=== PATIENT | male | born 1945 | race African-American/Black ===

== ENCOUNTER 2018-05-05 18:02 | Inpatient (IN) ==
[2018-05-05] MEDS ORDERED: ACETAMINOPHEN 325 MG TABLET PO PRN (20:18)
[2018-05-05] MEDS ORDERED: SODIUM CHLORIDE 0.9% 1,000 ML IV PRN (20:23)
[2018-05-05] MEDS ORDERED: SODIUM CHLORIDE 0.9% 1,000 ML IV SCH (20:30)
[2018-05-05 21:13] LABS: Hematocrit 17.9 VOL% (42.0-52.0); Hemoglobin 5.3 GM/DL (14.0-18.0); INR 1.1; PT Patient Result 11.7 SECS
[2018-05-05 21:26] LABS: Thyroid Stimulating Hormone 2.42 uIU/ml (0.358-3.74)
[2018-05-06] MEDS: POTASSIUM CHLORIDE INJ 40 MEQ in SODIUM CHLORIDE 0.9% 1,000 ML IV SCH ×4 (01:01→18:44)
[2018-05-06] MEDS: PANTOPRAZOLE 40 MG VIAL IV SCH ×3 (04:43→21:20)
[2018-05-06] MEDS: cefTRIAXone 1,000 MG in SYRINGE 1 EACH IV SCH ×2 (04:44→21:16)
[2018-05-06 04:49] LABS: Apearance,Urine Slightly Hazy (Clear); Bacteria,Urine Occasional /HPF (Few); Bilirubin,Urine Negative (Negative); Blood, Urine Small mg/dL (Negative); Glucose,Urine (UA) Negative (Negative); Hyaline Casts,Urine 1 /LPF (0-3); Ketones,Urine Negative (Negative); Mucus,Urine Occasional /LPF (Occasional); Nitrite,Urine Negative (Negative); Protein,Urine 30 MG/DL; RBC,Urine 15 /HPF (0-4); Squamous Epithelial Cell,Urine Occasional /HPF (0-10); Urine Color Yellow (Yellow); Urine Specific Gravity 1.013 (1.001-1.035); WBC,Urine 97 /HPF (0-6)
[2018-05-06 07:44] LABS: Basophils % 0.2 % (0.0-0.8); Eosinophils # 0.2 10*3/uL (0.0-0.87); Eosinophils % 3.6 % (0.00-10.9); Hematocrit 25.1 VOL% (42.0-52.0); Hemoglobin 7.9 GM/DL (14.0-18.0); Immature Granulocytes % 0.4 %; Immature Granulocytes Absolute 0.02 #; Lymphocytes % 17.5 % (21.2-54.2); Mean Corpuscular HGB Conc 31.6 GM/DL (32-36); Mean Corpuscular Hemoglobin 26 PG (27-34); Mean Corpuscular Volume 81.2 FL (87-102); Mean Platelet Volume 10.1 FL (9.6-12.0); Monocytes # 0.4 10*3/uL (0.11-0.8); Monocytes % 6.8 % (1.7-12.7); Neutrophils % 71.5 % (38.7-73.9); Platelet Count 359 T/CUMM (130-400); Red Blood Count 3.08 MC/CUMM (3.8-5.5); Red Cell Distribution Width 15.8 % (9.3-17.3); White Blood Count 5.6 T/CUMM (4-12)
[2018-05-06 07:45] LABS: Hematocrit 25.3 VOL% (42.0-52.0); Hematocrit 25.5 VOL% (42.0-52.0); Hemoglobin 7.9 GM/DL (14.0-18.0)
[2018-05-06 08:13] LABS: Alanine Aminotransferase < 9 U/L (16-61); Albumin 2.1 G/DL (3.4-5.0); Alkaline Phosphatase 64 U/L (45-117); Aspartate Amino Transferase 9 U/L (0-37); Blood Urea Nitrogen 8 MG/DL (7-18); Calcium 7.9 MG/DL (8.5-10.1); Glucose 87 MG/DL (74-106); Osmolality,Calculated 273.5 MOS/KG (273-304); Potassium 3.6 MMOL/L (3.5-5.1); Sodium 139 MMOL/L (136-145); Total Protein 6.9 G/DL (6.4-8.3)
[2018-05-06 09:08] LABS: % Iron Saturation 4.2 % (18-50); Ferritin 28.5 ng/ml (26-388)
[2018-05-06 10:43] LABS: Folate 5.6 NG/ML (5.4-24.0)
[2018-05-06] MEDS: amLODIPine 5 MG TABLET PO SCH (11:40)
[2018-05-06 14:47] LABS: Hematocrit 29.1 VOL% (42.0-52.0); Hemoglobin 9.4 GM/DL (14.0-18.0)
[2018-05-06] MEDS: FOLIC ACID 1 MG TABLET PO SCH ×2 (15:50→21:16)
[2018-05-06] MEDS: CYANOCOBALAMIN 1000 MCG/1 ML VIAL IM SCH (15:50)
[2018-05-07 05:56] LABS: Basophils % 0.4 % (0.0-0.8); Eosinophils # 0.2 10*3/uL (0.0-0.87); Eosinophils % 4.2 % (0.00-10.9); Hematocrit 23.3 VOL% (42.0-52.0); Hemoglobin 7.5 GM/DL (14.0-18.0); Immature Granulocytes % 0.4 %; Immature Granulocytes Absolute 0.02 #; Lymphocytes # 1.2 10*3/uL (1.4-4.0); Lymphocytes % 21.2 % (21.2-54.2); Mean Corpuscular HGB Conc 32.2 GM/DL (32-36); Mean Corpuscular Hemoglobin 26 PG (27-34); Mean Corpuscular Volume 79.3 FL (87-102); Mean Platelet Volume 10.3 FL (9.6-12.0); Monocytes # 0.3 10*3/uL (0.11-0.8); Monocytes % 6.2 % (1.7-12.7); Neutrophils # 3.7 10*3/uL (1.4-7.4); Neutrophils % 67.6 % (38.7-73.9); Platelet Count 365 T/CUMM (130-400); Red Blood Count 2.94 MC/CUMM (3.8-5.5); Red Cell Distribution Width 15.9 % (9.3-17.3); White Blood Count 5.5 T/CUMM (4-12)
[2018-05-07 06:27] LABS: Calcium 7.8 MG/DL (8.5-10.1); Osmolality,Calculated 265.1 MOS/KG (273-304); Potassium 4.1 MMOL/L (3.5-5.1)
[2018-05-07] MEDS ORDERED: MAGNESIUM SULF RIDER 2 GM in PREMIX 1 EACH IV ONE (06:55)
[2018-05-07] MEDS: PANTOPRAZOLE 40 MG VIAL IV SCH (10:58)
[2018-05-07] MEDS: amLODIPine 5 MG TABLET PO SCH (10:58)
[2018-05-07] MEDS: CYANOCOBALAMIN 1000 MCG/1 ML VIAL IM SCH (10:58)
[2018-05-07] MEDS: FOLIC ACID 1 MG TABLET PO SCH ×2 (10:58→22:16)
[2018-05-07] MEDS ORDERED: FUROSEMIDE 40 MG/4 ML VIAL IV ONE (14:57)
[2018-05-08 01:00] LABS: Hematocrit 34.9 VOL% (42.0-52.0); Hemoglobin 11.7 GM/DL (14.0-18.0)
[2018-05-08] MEDS: PANTOPRAZOLE 40 MG VIAL IV SCH ×3 (03:36→22:47)
[2018-05-08] MEDS: cefTRIAXone 1,000 MG in SYRINGE 1 EACH IV SCH (03:38)
[2018-05-08] MEDS: POTASSIUM CHLORIDE INJ 40 MEQ in SODIUM CHLORIDE 0.9% 1,000 ML IV SCH (08:01)
[2018-05-08] MEDS: CYANOCOBALAMIN 1000 MCG/1 ML VIAL IM SCH (09:37)
[2018-05-08] MEDS: amLODIPine 5 MG TABLET PO SCH (09:39)
[2018-05-08] MEDS: FOLIC ACID 1 MG TABLET PO SCH ×2 (09:39→22:48)
[2018-05-08] MEDS ORDERED: BISACODYL 5 MG TABLET PO ONE (12:00)
[2018-05-08] MEDS ORDERED: POLYETHYLENE GLYCOL 3350/ELECTROLYTES 4,000 ML BOTTLE PO ONE (18:00)
[2018-05-09 05:18] LABS: Hematocrit 32.1 VOL% (42.0-52.0); Hemoglobin 10.7 GM/DL (14.0-18.0)
[2018-05-09 05:19] LABS: Basophils % 0.3 % (0.0-0.8); Eosinophils # 0.3 10*3/uL (0.0-0.87); Eosinophils % 4.8 % (0.00-10.9); Hematocrit 31.8 VOL% (42.0-52.0); Hemoglobin 10.2 GM/DL (14.0-18.0); Immature Granulocytes % 0.3 %; Immature Granulocytes Absolute 0.02 #; Lymphocytes # 1.2 10*3/uL (1.4-4.0); Lymphocytes % 20.8 % (21.2-54.2); Mean Corpuscular HGB Conc 32.1 GM/DL (32-36); Mean Corpuscular Hemoglobin 27 PG (27-34); Mean Corpuscular Volume 82.8 FL (87-102); Monocytes # 0.3 10*3/uL (0.11-0.8); Monocytes % 5.2 % (1.7-12.7); Neutrophils % 68.6 % (38.7-73.9); Platelet Count 381 T/CUMM (130-400); Red Blood Count 3.84 MC/CUMM (3.8-5.5); Red Cell Distribution Width 16.7 % (9.3-17.3); White Blood Count 5.8 T/CUMM (4-12)
[2018-05-09 05:39] LABS: Calcium 8.1 MG/DL (8.5-10.1); Potassium 3.2 MMOL/L (3.5-5.1)
[2018-05-09] MEDS: PANTOPRAZOLE 40 MG VIAL IV SCH ×2 (09:12→20:46)
[2018-05-09] MEDS: POTASSIUM CHLORIDE RIDER 10 MEQ in PREMIX 1 EACH IV PRN ×4 (09:13→20:47)
[2018-05-09] MEDS ORDERED: PROPOFOL 200 MG/20 ML VIAL IV ONE (11:28)
[2018-05-09] MEDS ORDERED: LIDOCAINE 2% 5 ML VIAL ONE (11:28)
[2018-05-09] MEDS: amLODIPine 5 MG TABLET PO SCH (15:04)
[2018-05-09] MEDS: FOLIC ACID 1 MG TABLET PO SCH ×2 (15:04→20:46)
[2018-05-10] MEDS: amLODIPine 10 MG TABLET PO SCH (09:06)
[2018-05-10] MEDS: FOLIC ACID 1 MG TABLET PO SCH ×2 (09:06→21:01)
[2018-05-10] MEDS: PANTOPRAZOLE 40 MG VIAL IV SCH ×2 (09:06→21:01)
[2018-05-10 09:33] LABS: Basophils % 0.2 % (0.0-0.8); Eosinophils # 0.2 10*3/uL (0.0-0.87); Eosinophils % 4.4 % (0.00-10.9); Hematocrit 35.3 VOL% (42.0-52.0); Hemoglobin 11.4 GM/DL (14.0-18.0); Immature Granulocytes % 0.4 %; Immature Granulocytes Absolute 0.02 #; Lymphocytes % 17.9 % (21.2-54.2); Mean Corpuscular HGB Conc 32.3 GM/DL (32-36); Mean Corpuscular Hemoglobin 27 PG (27-34); Mean Corpuscular Volume 82.7 FL (87-102); Mean Platelet Volume 9.8 FL (9.6-12.0); Monocytes # 0.2 10*3/uL (0.11-0.8); Monocytes % 4.1 % (1.7-12.7); Platelet Count 407 T/CUMM (130-400); Red Blood Count 4.27 MC/CUMM (3.8-5.5); White Blood Count 5.4 T/CUMM (4-12)
[2018-05-10 10:01] LABS: Calcium 8.9 MG/DL (8.5-10.1); Potassium 3.4 MMOL/L (3.5-5.1)
[2018-05-10] MEDS ORDERED: TUBERCULIN SKIN TEST 0.1 ML SYRINGE INTRADERM ONE (13:24)
[2018-05-10] MEDS ORDERED: POLYETHYLENE GLYCOL POWDER 255 GM BOTTLE PO ONE (16:52)
[2018-05-11 05:46] LABS: Basophils % 0.4 % (0.0-0.8); Eosinophils # 0.3 10*3/uL (0.0-0.87); Eosinophils % 4.7 % (0.00-10.9); Hematocrit 32.1 VOL% (42.0-52.0); Hemoglobin 10.2 GM/DL (14.0-18.0); Immature Granulocytes % 0.2 %; Immature Granulocytes Absolute 0.01 #; Lymphocytes # 1.1 10*3/uL (1.4-4.0); Lymphocytes % 19.5 % (21.2-54.2); Mean Corpuscular HGB Conc 31.8 GM/DL (32-36); Mean Corpuscular Hemoglobin 27 PG (27-34); Mean Corpuscular Volume 84.7 FL (87-102); Mean Platelet Volume 10.4 FL (9.6-12.0); Monocytes # 0.3 10*3/uL (0.11-0.8); Monocytes % 4.8 % (1.7-12.7); Neutrophils # 3.9 10*3/uL (1.4-7.4); Neutrophils % 70.4 % (38.7-73.9); Platelet Count 381 T/CUMM (130-400); Red Blood Count 3.79 MC/CUMM (3.8-5.5); Red Cell Distribution Width 17.4 % (9.3-17.3); White Blood Count 5.6 T/CUMM (4-12)
[2018-05-11 06:04] LABS: Calcium 8.9 MG/DL (8.5-10.1); Osmolality,Calculated 276.4 MOS/KG (273-304); Potassium 3.8 MMOL/L (3.5-5.1)
[2018-05-11] MEDS: PANTOPRAZOLE 40 MG VIAL IV SCH ×2 (08:47→20:52)
[2018-05-11] MEDS: amLODIPine 10 MG TABLET PO SCH (10:05)
[2018-05-11] MEDS: FOLIC ACID 1 MG TABLET PO SCH ×2 (10:05→20:52)
[2018-05-11] MEDS ORDERED: cefOXitin 2,000 MG in SYRINGE 1 EACH IV ONE (12:00)
[2018-05-11] MEDS ORDERED: TISSUE ADHESIVE 1 EACH APPLICATOR TOP ONE (12:20)
[2018-05-11] MEDS ORDERED: BUPIVACAINE MPF 0.25% 30 ML VIAL ONE (15:35)
[2018-05-11] MEDS ORDERED: MORPHINE 10 MG/1 ML VIAL IV PRN (16:03)
[2018-05-11] MEDS ORDERED: diphenhydrAMINE 50 MG/1 ML VIAL IV PRN (16:03)
[2018-05-11] MEDS ORDERED: PROMETHAZINE INJ 25 MG in SODIUM CHLORIDE 0.9% 50 ML IV PRN (16:03)
[2018-05-11] MEDS ORDERED: ONDANSETRON 4 MG/2 ML VIAL IV PRN (16:03)
[2018-05-11] MEDS ORDERED: MEPERIDINE 25 MG/1 ML VIAL IV PRN (16:03)
[2018-05-11] MEDS ORDERED: fentaNYL 100 MCG/2 ML VIAL ONE (16:25)
[2018-05-11] MEDS ORDERED: MIDAZOLAM 2 MG/2 ML VIAL ONE (16:25)
[2018-05-11] MEDS ORDERED: PROPOFOL 200 MG/20 ML VIAL IV ONE (16:25)
[2018-05-11] MEDS ORDERED: SEVOFLURANE 1 UNIT/15 MINUTE INH ONE (16:25)
[2018-05-11] MEDS ORDERED: DESFLURANE 1 UNIT/15 MINUTE INH ONE (16:25)
[2018-05-11] MEDS ORDERED: ONDANSETRON 4 MG/2 ML VIAL ONE (16:25)
[2018-05-11] MEDS ORDERED: ROCURONIUM 100 MG/10 ML VIAL IV ONE (16:26)
[2018-05-11] MEDS ORDERED: LACTATED RINGERS 1,000 ML IV ONE (16:26)
[2018-05-11] MEDS ORDERED: NEOSTIGMINE 10 MG/10 ML VIAL ONE (16:26)
[2018-05-11] MEDS ORDERED: SUCCINYLCHOLINE 200 MG/10 ML VIAL ONE (16:26)
[2018-05-11] MEDS ORDERED: GLYCOPYRROLATE 0.4 MG/2 ML VIAL ONE (16:26)
[2018-05-11] MEDS ORDERED: LABETALOL 100 MG/20 ML VIAL IV ONE (16:26)
[2018-05-11] MEDS: LACTATED RINGERS 1,000 ML IV SCH (17:42)
[2018-05-11] MEDS: ENOXAPARIN 40 MG/0.4 ML SYRINGE SUBCUT SCH (17:55)
[2018-05-11] MEDS: KETOROLAC 30 MG/1 ML VIAL IV SCH ×2 (17:55→23:12)
[2018-05-11 18:00] LABS: Basophils % 0.1 % (0.0-0.8); Eosinophils # 0.1 10*3/uL (0.0-0.87); Eosinophils % 0.8 % (0.00-10.9); Hematocrit 33.2 VOL% (42.0-52.0); Hemoglobin 10.4 GM/DL (14.0-18.0); Immature Granulocytes % 0.3 %; Immature Granulocytes Absolute 0.02 #; Lymphocytes # 0.9 10*3/uL (1.4-4.0); Lymphocytes % 11.5 % (21.2-54.2); Mean Corpuscular HGB Conc 31.3 GM/DL (32-36); Mean Corpuscular Hemoglobin 27 PG (27-34); Mean Corpuscular Volume 85.6 FL (87-102); Mean Platelet Volume 9.8 FL (9.6-12.0); Monocytes # 0.2 10*3/uL (0.11-0.8); Monocytes % 2.7 % (1.7-12.7); Neutrophils # 6.3 10*3/uL (1.4-7.4); Neutrophils % 84.6 % (38.7-73.9); Platelet Count 347 T/CUMM (130-400); Red Blood Count 3.88 MC/CUMM (3.8-5.5); Red Cell Distribution Width 17.3 % (9.3-17.3); White Blood Count 7.5 T/CUMM (4-12)
[2018-05-11 18:07] LABS: Calcium 8.4 MG/DL (8.5-10.1); Osmolality,Calculated 282.3 MOS/KG (273-304); Potassium 3.5 MMOL/L (3.5-5.1)
[2018-05-12] MEDS: LACTATED RINGERS 1,000 ML IV SCH ×2 (02:18→10:55)
[2018-05-12] MEDS: KETOROLAC 30 MG/1 ML VIAL IV SCH ×3 (05:23→18:51)
[2018-05-12 06:25] LABS: Basophils % 0.2 % (0.0-0.8); Eosinophils % 0.5 % (0.00-10.9); Hemoglobin 9.4 GM/DL (14.0-18.0); Immature Granulocytes % 0.2 %; Immature Granulocytes Absolute 0.02 #; Lymphocytes # 0.6 10*3/uL (1.4-4.0); Lymphocytes % 6.9 % (21.2-54.2); Mean Corpuscular HGB Conc 32.4 GM/DL (32-36); Mean Corpuscular Hemoglobin 27 PG (27-34); Mean Corpuscular Volume 83.1 FL (87-102); Mean Platelet Volume 10.1 FL (9.6-12.0); Monocytes # 0.3 10*3/uL (0.11-0.8); Monocytes % 3.2 % (1.7-12.7); Neutrophils # 7.4 10*3/uL (1.4-7.4); Platelet Count 312 T/CUMM (130-400); Red Blood Count 3.49 MC/CUMM (3.8-5.5); Red Cell Distribution Width 17.6 % (9.3-17.3); White Blood Count 8.3 T/CUMM (4-12)
[2018-05-12 06:54] LABS: Calcium 7.9 MG/DL (8.5-10.1); Osmolality,Calculated 279.3 MOS/KG (273-304); Potassium 3.9 MMOL/L (3.5-5.1)
[2018-05-12 07:16] LABS: Band Neutrophils 6 % (0-10); Hypochromasia 1+; Lymphocytes 7 % (20-55); Ovalocytes Slight; Platelet Estimate Adequate; Segmented Neutrophils 85 % (50-85); Total Cells Counted 100
[2018-05-12] MEDS: amLODIPine 10 MG TABLET PO SCH (09:31)
[2018-05-12] MEDS: FOLIC ACID 1 MG TABLET PO SCH ×2 (09:32→21:20)
[2018-05-12] MEDS: PANTOPRAZOLE 40 MG VIAL IV SCH ×2 (10:04→21:21)
[2018-05-12] MEDS ORDERED: MAGNESIUM SULF RIDER 2 GM in PREMIX 1 EACH IV ONE (10:28)
[2018-05-12] MEDS: DEXT 5% NACL 0.45% KCL 40 MEQ 40 MEQ/1,000 ML BAG IV SCH ×2 (10:53→23:23)
[2018-05-12] MEDS: ENOXAPARIN 40 MG/0.4 ML SYRINGE SUBCUT SCH (18:51)
[2018-05-13] MEDS: KETOROLAC 30 MG/1 ML VIAL IV SCH ×4 (00:15→17:00)
[2018-05-13 06:15] LABS: Basophils % 0.2 % (0.0-0.8); Eosinophils # 0.2 10*3/uL (0.0-0.87); Eosinophils % 2.4 % (0.00-10.9); Hematocrit 28.4 VOL% (42.0-52.0); Hemoglobin 9.1 GM/DL (14.0-18.0); Immature Granulocytes % 0.5 %; Immature Granulocytes Absolute 0.05 #; Lymphocytes # 0.7 10*3/uL (1.4-4.0); Mean Corpuscular Hemoglobin 27 PG (27-34); Mean Corpuscular Volume 84.5 FL (87-102); Mean Platelet Volume 9.9 FL (9.6-12.0); Monocytes # 0.3 10*3/uL (0.11-0.8); Monocytes % 3.4 % (1.7-12.7); Neutrophils # 8.3 10*3/uL (1.4-7.4); Neutrophils % 86.5 % (38.7-73.9); Platelet Count 277 T/CUMM (130-400); Red Blood Count 3.36 MC/CUMM (3.8-5.5); Red Cell Distribution Width 18.2 % (9.3-17.3); White Blood Count 9.6 T/CUMM (4-12)
[2018-05-13 06:41] LABS: Calcium 8.1 MG/DL (8.5-10.1); Osmolality,Calculated 279.4 MOS/KG (273-304); Potassium 4.1 MMOL/L (3.5-5.1)
[2018-05-13] MEDS: amLODIPine 10 MG TABLET PO SCH (08:07)
[2018-05-13] MEDS: FOLIC ACID 1 MG TABLET PO SCH ×2 (08:07→20:46)
[2018-05-13] MEDS: PANTOPRAZOLE 40 MG VIAL IV SCH ×2 (08:07→20:44)
[2018-05-13] MEDS: DEXT 5% NACL 0.45% KCL 40 MEQ 40 MEQ/1,000 ML BAG IV SCH ×2 (13:19→23:46)
[2018-05-13] MEDS: ENOXAPARIN 40 MG/0.4 ML SYRINGE SUBCUT SCH (17:00)
[2018-05-14] MEDS: KETOROLAC 30 MG/1 ML VIAL IV SCH ×5 (00:14→23:27)
[2018-05-14] MEDS: ONDANSETRON 4 MG/2 ML VIAL IV PRN (00:17)
[2018-05-14 06:08] LABS: Basophils % 0.3 % (0.0-0.8); Eosinophils # 0.3 10*3/uL (0.0-0.87); Hematocrit 31.1 VOL% (42.0-52.0); Hemoglobin 10.1 GM/DL (14.0-18.0); Immature Granulocytes % 0.8 %; Immature Granulocytes Absolute 0.09 #; Lymphocytes # 0.8 10*3/uL (1.4-4.0); Lymphocytes % 7.1 % (21.2-54.2); Mean Corpuscular HGB Conc 32.5 GM/DL (32-36); Mean Corpuscular Hemoglobin 27 PG (27-34); Mean Corpuscular Volume 82.1 FL (87-102); Mean Platelet Volume 10.1 FL (9.6-12.0); Monocytes # 0.3 10*3/uL (0.11-0.8); Monocytes % 2.9 % (1.7-12.7); Neutrophils # 9.2 10*3/uL (1.4-7.4); Neutrophils % 85.9 % (38.7-73.9); Platelet Count 309 T/CUMM (130-400); Red Blood Count 3.79 MC/CUMM (3.8-5.5); Red Cell Distribution Width 18.7 % (9.3-17.3); White Blood Count 10.8 T/CUMM (4-12)
[2018-05-14 06:31] LABS: Calcium 8.9 MG/DL (8.5-10.1); Osmolality,Calculated 276.5 MOS/KG (273-304)
[2018-05-14] MEDS: PANTOPRAZOLE 40 MG VIAL IV SCH ×2 (08:13→22:20)
[2018-05-14] MEDS: FOLIC ACID 1 MG TABLET PO SCH ×2 (09:31→22:20)
[2018-05-14] MEDS: amLODIPine 10 MG TABLET PO SCH (09:31)
[2018-05-14] MEDS: DEXT 5% NACL 0.45% KCL 40 MEQ 40 MEQ/1,000 ML BAG IV SCH ×3 (14:39→23:26)
[2018-05-14] MEDS: ENOXAPARIN 40 MG/0.4 ML SYRINGE SUBCUT SCH (17:30)
[2018-05-15] MEDS: KETOROLAC 30 MG/1 ML VIAL IV SCH ×3 (05:44→17:44)
[2018-05-15] MEDS: PANTOPRAZOLE 40 MG VIAL IV SCH ×2 (09:33→21:54)
[2018-05-15] MEDS: amLODIPine 10 MG TABLET PO SCH (09:36)
[2018-05-15] MEDS: FOLIC ACID 1 MG TABLET PO SCH ×2 (09:36→21:53)
[2018-05-15] MEDS: DEXT 5% NACL 0.45% KCL 40 MEQ 40 MEQ/1,000 ML BAG IV SCH ×2 (09:37→17:45)
[2018-05-15] MEDS: ENOXAPARIN 40 MG/0.4 ML SYRINGE SUBCUT SCH (17:44)
[2018-05-16 02:16] LABS: Calcium 8.2 MG/DL (8.5-10.1); Osmolality,Calculated 276.4 MOS/KG (273-304); Potassium 4.6 MMOL/L (3.5-5.1)
[2018-05-16] MEDS: DEXT 5% NACL 0.45% KCL 40 MEQ 40 MEQ/1,000 ML BAG IV SCH ×4 (02:21→23:15)
[2018-05-16] MEDS: KETOROLAC 30 MG/1 ML VIAL IV SCH ×3 (02:48→14:10)
[2018-05-16] MEDS: amLODIPine 10 MG TABLET PO SCH (09:00)
[2018-05-16] MEDS: FOLIC ACID 1 MG TABLET PO SCH ×2 (09:00→23:13)
[2018-05-16] MEDS: PANTOPRAZOLE 40 MG VIAL IV SCH ×2 (10:18→20:14)
[2018-05-16] MEDS ORDERED: ceFAZolin 1,000 MG VIAL ONE (16:54)
[2018-05-16] MEDS: ENOXAPARIN 40 MG/0.4 ML SYRINGE SUBCUT SCH (18:23)
[2018-05-16] MEDS: ONDANSETRON 4 MG/2 ML VIAL IV PRN (20:11)
[2018-05-16] MEDS: HYDROmorphone 2 MG/1 ML VIAL IV PRN (20:11)
[2018-05-16] MEDS ORDERED: PROPOFOL 200 MG/20 ML VIAL IV ONE (20:31)
[2018-05-16] MEDS ORDERED: fentaNYL 100 MCG/2 ML VIAL ONE (20:31)
[2018-05-16] MEDS ORDERED: SEVOFLURANE 1 UNIT/15 MINUTE INH ONE (20:31)
[2018-05-16] MEDS ORDERED: ONDANSETRON 4 MG/2 ML VIAL ONE (20:32)
[2018-05-16] MEDS ORDERED: PHENYLEPHRINE 1 MG/10 ML SYRINGE IV ONE (20:32)
[2018-05-16] MEDS ORDERED: SUCCINYLCHOLINE 200 MG/10 ML VIAL ONE (20:32)
[2018-05-16] MEDS ORDERED: ePHEDrine 50 MG/ML AMP ONE (21:01)
[2018-05-17] MEDS: DEXT 5% NACL 0.45% KCL 40 MEQ 40 MEQ/1,000 ML BAG IV SCH ×3 (06:04→20:11)
[2018-05-17 07:28] LABS: Basophils % 0.3 % (0.0-0.8); Eosinophils # 0.3 10*3/uL (0.0-0.87); Eosinophils % 4.4 % (0.00-10.9); Hematocrit 29.3 VOL% (42.0-52.0); Hemoglobin 9.3 GM/DL (14.0-18.0); Immature Granulocytes % 0.5 %; Immature Granulocytes Absolute 0.04 #; Lymphocytes # 0.8 10*3/uL (1.4-4.0); Lymphocytes % 10.6 % (21.2-54.2); Mean Corpuscular HGB Conc 31.7 GM/DL (32-36); Mean Corpuscular Hemoglobin 27 PG (27-34); Mean Corpuscular Volume 84.7 FL (87-102); Mean Platelet Volume 10.9 FL (9.6-12.0); Monocytes # 0.5 10*3/uL (0.11-0.8); Neutrophils % 78.2 % (38.7-73.9); Platelet Count 357 T/CUMM (130-400); Red Blood Count 3.46 MC/CUMM (3.8-5.5); White Blood Count 7.7 T/CUMM (4-12)
[2018-05-17 08:00] LABS: Calcium 7.9 MG/DL (8.5-10.1); Osmolality,Calculated 265.2 MOS/KG (273-304); Potassium 4.6 MMOL/L (3.5-5.1)
[2018-05-17] MEDS: FOLIC ACID 1 MG TABLET PO SCH ×2 (09:07→20:11)
[2018-05-17] MEDS: amLODIPine 10 MG TABLET PO SCH (09:07)
[2018-05-17] MEDS: PANTOPRAZOLE 40 MG VIAL IV SCH ×2 (09:08→20:11)
[2018-05-17] MEDS: HYDROmorphone 2 MG/1 ML VIAL IV PRN ×2 (15:39→23:24)
[2018-05-17] MEDS: ENOXAPARIN 40 MG/0.4 ML SYRINGE SUBCUT SCH (18:16)
[2018-05-17] MEDS: ONDANSETRON 4 MG/2 ML VIAL IV PRN (23:24)
[2018-05-18] MEDS: DEXT 5% NACL 0.45% KCL 40 MEQ 40 MEQ/1,000 ML BAG IV SCH (06:18)
[2018-05-18 06:59] LABS: Basophils % 0.3 % (0.0-0.8); Eosinophils # 0.4 10*3/uL (0.0-0.87); Eosinophils % 5.7 % (0.00-10.9); Hematocrit 27.2 VOL% (42.0-52.0); Hemoglobin 8.8 GM/DL (14.0-18.0); Immature Granulocytes % 0.5 %; Immature Granulocytes Absolute 0.03 #; Lymphocytes % 14.8 % (21.2-54.2); Mean Corpuscular HGB Conc 32.4 GM/DL (32-36); Mean Corpuscular Hemoglobin 27 PG (27-34); Mean Corpuscular Volume 81.9 FL (87-102); Mean Platelet Volume 10.2 FL (9.6-12.0); Monocytes # 0.5 10*3/uL (0.11-0.8); Monocytes % 7.5 % (1.7-12.7); Neutrophils # 4.7 10*3/uL (1.4-7.4); Neutrophils % 71.2 % (38.7-73.9); Platelet Count 352 T/CUMM (130-400); Red Blood Count 3.32 MC/CUMM (3.8-5.5); Red Cell Distribution Width 19.4 % (9.3-17.3); White Blood Count 6.6 T/CUMM (4-12)
[2018-05-18 07:30] LABS: Osmolality,Calculated 260.5 MOS/KG (273-304); Potassium 4.8 MMOL/L (3.5-5.1)
[2018-05-18] MEDS: amLODIPine 10 MG TABLET PO SCH (09:34)
[2018-05-18] MEDS: FOLIC ACID 1 MG TABLET PO SCH ×2 (09:35→20:51)
[2018-05-18] MEDS: PANTOPRAZOLE 40 MG VIAL IV SCH ×2 (09:35→20:51)
[2018-05-18] MEDS ORDERED: POTASSIUM CHLORIDE RIDER 10 MEQ in PREMIX 1 EACH IV PRN (09:45)
[2018-05-18] MEDS ORDERED: MAGNESIUM SULF RIDER 4 GM in PREMIX 1 EACH IV PRN (09:45)
[2018-05-18] MEDS: DEXT 5% NACL 0.9% KCL 40 MEQ 40 MEQ/1,000 ML BAG IV SCH (13:56)
[2018-05-18] MEDS: MAGNESIUM SULF RIDER 2 GM in PREMIX 1 EACH IV PRN (14:38)
[2018-05-18] MEDS: ENOXAPARIN 40 MG/0.4 ML SYRINGE SUBCUT SCH (17:26)
[2018-05-19] MEDS: DEXT 5% NACL 0.9% KCL 40 MEQ 40 MEQ/1,000 ML BAG IV SCH ×4 (00:11→23:04)
[2018-05-19 06:10] LABS: Basophils % 0.3 % (0.0-0.8); Eosinophils # 0.3 10*3/uL (0.0-0.87); Eosinophils % 4.4 % (0.00-10.9); Hematocrit 30.8 VOL% (42.0-52.0); Immature Granulocytes % 0.4 %; Immature Granulocytes Absolute 0.03 #; Lymphocytes # 0.9 10*3/uL (1.4-4.0); Lymphocytes % 11.2 % (21.2-54.2); Mean Corpuscular HGB Conc 32.5 GM/DL (32-36); Mean Corpuscular Hemoglobin 26 PG (27-34); Mean Corpuscular Volume 81.1 FL (87-102); Mean Platelet Volume 10.4 FL (9.6-12.0); Monocytes # 0.4 10*3/uL (0.11-0.8); Monocytes % 5.4 % (1.7-12.7); Neutrophils # 6.1 10*3/uL (1.4-7.4); Neutrophils % 78.3 % (38.7-73.9); Platelet Count 446 T/CUMM (130-400); Red Cell Distribution Width 19.5 % (9.3-17.3); White Blood Count 7.8 T/CUMM (4-12)
[2018-05-19 06:37] LABS: Calcium 8.1 MG/DL (8.5-10.1); Osmolality,Calculated 262.4 MOS/KG (273-304); Potassium 4.7 MMOL/L (3.5-5.1)
[2018-05-19] MEDS: amLODIPine 10 MG TABLET PO SCH (09:17)
[2018-05-19] MEDS: PANTOPRAZOLE 40 MG VIAL IV SCH ×2 (09:17→21:16)
[2018-05-19] MEDS: FOLIC ACID 1 MG TABLET PO SCH ×2 (09:18→21:16)
[2018-05-19] MEDS: DEXT 5% NACL 0.45% KCL 40 MEQ 40 MEQ/1,000 ML BAG IV SCH (09:21)
[2018-05-19] MEDS: ENOXAPARIN 40 MG/0.4 ML SYRINGE SUBCUT SCH (17:52)
[2018-05-20] MEDS: DEXT 5% NACL 0.9% KCL 40 MEQ 40 MEQ/1,000 ML BAG IV SCH ×3 (04:30→20:31)
[2018-05-20] MEDS: PANTOPRAZOLE 40 MG VIAL IV SCH ×2 (09:39→20:25)
[2018-05-20] MEDS: FOLIC ACID 1 MG TABLET PO SCH ×2 (09:39→20:26)
[2018-05-20] MEDS: amLODIPine 10 MG TABLET PO SCH (09:39)
[2018-05-20] MEDS: ENOXAPARIN 40 MG/0.4 ML SYRINGE SUBCUT SCH (18:39)
[2018-05-20] MEDS: ONDANSETRON 4 MG/2 ML VIAL IV PRN (20:26)
[2018-05-21] MEDS: DEXT 5% NACL 0.9% KCL 40 MEQ 40 MEQ/1,000 ML BAG IV SCH ×3 (04:55→23:30)
[2018-05-21] MEDS: amLODIPine 10 MG TABLET PO SCH (11:53)
[2018-05-21] MEDS: FOLIC ACID 1 MG TABLET PO SCH ×2 (11:53→20:19)
[2018-05-21] MEDS: PANTOPRAZOLE 40 MG VIAL IV SCH ×2 (11:53→20:19)
[2018-05-21] MEDS: ENOXAPARIN 40 MG/0.4 ML SYRINGE SUBCUT SCH (19:17)
[2018-05-21] MEDS: ONDANSETRON 4 MG/2 ML VIAL IV PRN (23:43)
[2018-05-22] MEDS: DEXT 5% NACL 0.9% KCL 40 MEQ 40 MEQ/1,000 ML BAG IV SCH ×3 (05:30→22:46)
[2018-05-22 06:52] LABS: Basophils % 0.3 % (0.0-0.8); Eosinophils # 0.3 10*3/uL (0.0-0.87); Eosinophils % 2.8 % (0.00-10.9); Hematocrit 30.2 VOL% (42.0-52.0); Immature Granulocytes % 0.4 %; Immature Granulocytes Absolute 0.05 #; Lymphocytes # 0.8 10*3/uL (1.4-4.0); Mean Corpuscular HGB Conc 33.1 GM/DL (32-36); Mean Corpuscular Hemoglobin 27 PG (27-34); Mean Corpuscular Volume 80.7 FL (87-102); Mean Platelet Volume 10.2 FL (9.6-12.0); Monocytes # 0.6 10*3/uL (0.11-0.8); Monocytes % 4.8 % (1.7-12.7); Neutrophils % 84.7 % (38.7-73.9); Platelet Count 418 T/CUMM (130-400); Red Blood Count 3.74 MC/CUMM (3.8-5.5); Red Cell Distribution Width 19.8 % (9.3-17.3); White Blood Count 11.9 T/CUMM (4-12)
[2018-05-22 07:16] LABS: Osmolality,Calculated 259.5 MOS/KG (273-304); Potassium 4.4 MMOL/L (3.5-5.1)
[2018-05-22] MEDS ORDERED: GLUCAGON 1 MG VIAL IM PRN (11:28)
[2018-05-22] MEDS ORDERED: DEXTROSE 50% 25 GM/50 ML VIAL IV PRN (11:28)
[2018-05-22] MEDS: ERTAPENEM 1,000 MG in SODIUM CHLORIDE 0.9% 100 ML IV SCH (12:31)
[2018-05-22] MEDS: ONDANSETRON 4 MG/2 ML VIAL IV PRN (12:33)
[2018-05-22] MEDS: PANTOPRAZOLE 40 MG VIAL IV SCH ×2 (12:33→20:15)
[2018-05-22] MEDS: FOLIC ACID 1 MG TABLET PO SCH ×2 (14:43→20:04)
[2018-05-22] MEDS: INSULIN REGULAR 100 UNIT/ML SUBCUT SCH ×2 (14:43→18:47)
[2018-05-22] MEDS ORDERED: TRACE ELEMENTS (5) 1 ML, MULTIVITAMIN INJ 10 ML in AMINO ACIDS/DEXT/LYTES 5-15% 2,000 ML IV SCH (17:00)
[2018-05-22] MEDS: amLODIPine 10 MG TABLET PO SCH (17:50)
[2018-05-22] MEDS: FAT EMULSION 20% 250 ML IV SCH (17:50)
[2018-05-22] MEDS: ENOXAPARIN 40 MG/0.4 ML SYRINGE SUBCUT SCH (20:00)
[2018-05-23] MEDS: INSULIN REGULAR 100 UNIT/ML SUBCUT SCH ×5 (00:15→23:37)
[2018-05-23 05:31] LABS: Basophils % 0.3 % (0.0-0.8); Eosinophils # 0.3 10*3/uL (0.0-0.87); Eosinophils % 4.6 % (0.00-10.9); Hematocrit 24.5 VOL% (42.0-52.0); Hemoglobin 8.1 GM/DL (14.0-18.0); Immature Granulocytes % 0.7 %; Immature Granulocytes Absolute 0.05 #; Lymphocytes # 0.7 10*3/uL (1.4-4.0); Lymphocytes % 10.3 % (21.2-54.2); Mean Corpuscular HGB Conc 33.1 GM/DL (32-36); Mean Corpuscular Hemoglobin 27 PG (27-34); Mean Corpuscular Volume 80.6 FL (87-102); Mean Platelet Volume 10.1 FL (9.6-12.0); Monocytes # 0.4 10*3/uL (0.11-0.8); Monocytes % 6.3 % (1.7-12.7); Neutrophils # 5.3 10*3/uL (1.4-7.4); Neutrophils % 77.8 % (38.7-73.9); Platelet Count 333 T/CUMM (130-400); Red Blood Count 3.04 MC/CUMM (3.8-5.5); Red Cell Distribution Width 19.9 % (9.3-17.3); White Blood Count 6.8 T/CUMM (4-12)
[2018-05-23 05:58] LABS: Calcium 7.4 MG/DL (8.5-10.1); Osmolality,Calculated 266.2 MOS/KG (273-304)
[2018-05-23 06:11] LABS: Blood Urea Nitrogen 7 MG/DL (7-18); Calcium 7.5 MG/DL (8.5-10.1); Glucose 119 MG/DL (74-106); Osmolality,Calculated 266.2 MOS/KG (273-304); Prealbumin < 3.0 MG/DL (20-40); Sodium 134 MMOL/L (136-145); Triglycerides 51 MG/DL (2-150)
[2018-05-23] MEDS: ERTAPENEM 1,000 MG in SODIUM CHLORIDE 0.9% 100 ML IV SCH (08:26)
[2018-05-23] MEDS: PANTOPRAZOLE 40 MG VIAL IV SCH ×2 (08:27→21:17)
[2018-05-23] MEDS: amLODIPine 10 MG TABLET PO SCH (09:42)
[2018-05-23] MEDS: FOLIC ACID 1 MG TABLET PO SCH ×2 (09:42→21:15)
[2018-05-23] MEDS: MAGNESIUM SULF RIDER 2 GM in PREMIX 1 EACH IV PRN (09:49)
[2018-05-23] MEDS ORDERED: DEXTROSE 10% 1,000 ML IV PRN (11:28)
[2018-05-23] MEDS: DEXT 5% NACL 0.9% KCL 40 MEQ 40 MEQ/1,000 ML BAG IV SCH ×2 (11:52→15:36)
[2018-05-23] MEDS ORDERED: HYDROmorphone 2 MG/1 ML VIAL ONE (14:35)
[2018-05-23] MEDS: FAT EMULSION 20% 250 ML IV SCH (15:35)
[2018-05-23] MEDS: ENOXAPARIN 40 MG/0.4 ML SYRINGE SUBCUT SCH (17:20)
[2018-05-23] MEDS: TRACE ELEMENTS (5) 1 ML, MULTIVITAMIN INJ 10 ML in AMINO ACIDS/DEXT/LYTES 5-15% 2,000 ML IV SCH (17:20)
[2018-05-23] MEDS: ONDANSETRON 4 MG/2 ML VIAL IV PRN (23:48)
[2018-05-24 04:13] LABS: Basophils % 0.3 % (0.0-0.8); Eosinophils # 0.4 10*3/uL (0.0-0.87); Eosinophils % 5.6 % (0.00-10.9); Hematocrit 24.5 VOL% (42.0-52.0); Hemoglobin 7.7 GM/DL (14.0-18.0); Immature Granulocytes % 0.5 %; Immature Granulocytes Absolute 0.04 #; Lymphocytes # 0.9 10*3/uL (1.4-4.0); Lymphocytes % 11.6 % (21.2-54.2); Mean Corpuscular HGB Conc 31.4 GM/DL (32-36); Mean Corpuscular Hemoglobin 26 PG (27-34); Mean Corpuscular Volume 83.9 FL (87-102); Mean Platelet Volume 10.6 FL (9.6-12.0); Monocytes # 0.4 10*3/uL (0.11-0.8); Monocytes % 5.2 % (1.7-12.7); Neutrophils # 5.7 10*3/uL (1.4-7.4); Neutrophils % 76.8 % (38.7-73.9); Platelet Count 323 T/CUMM (130-400); Red Blood Count 2.92 MC/CUMM (3.8-5.5); Red Cell Distribution Width 19.9 % (9.3-17.3); White Blood Count 7.4 T/CUMM (4-12)
[2018-05-24 04:21] LABS: Calcium 7.4 MG/DL (8.5-10.1); Osmolality,Calculated 281.7 MOS/KG (273-304); Potassium 4.7 MMOL/L (3.5-5.1)
[2018-05-24] MEDS: DEXT 5% NACL 0.9% KCL 40 MEQ 40 MEQ/1,000 ML BAG IV SCH ×3 (05:12→22:39)
[2018-05-24] MEDS: INSULIN REGULAR 100 UNIT/ML SUBCUT SCH ×3 (07:33→17:55)
[2018-05-24] MEDS: PANTOPRAZOLE 40 MG VIAL IV SCH ×2 (09:32→22:38)
[2018-05-24] MEDS: FOLIC ACID 1 MG TABLET PO SCH ×2 (09:32→22:38)
[2018-05-24] MEDS: amLODIPine 10 MG TABLET PO SCH (09:32)
[2018-05-24] MEDS: ERTAPENEM 1,000 MG in SODIUM CHLORIDE 0.9% 100 ML IV SCH (09:33)
[2018-05-24] MEDS: FAT EMULSION 20% 250 ML IV SCH (14:50)
[2018-05-24] MEDS ORDERED: MORPHINE 4 MG/1 ML VIAL IV PRN (14:54)
[2018-05-24] MEDS: TRACE ELEMENTS (5) 1 ML, MULTIVITAMIN INJ 10 ML in AMINO ACIDS/DEXT/LYTES 5-15% 2,000 ML IV SCH (17:05)
[2018-05-24] MEDS: ENOXAPARIN 40 MG/0.4 ML SYRINGE SUBCUT SCH (17:52)
[2018-05-25] MEDS: INSULIN REGULAR 100 UNIT/ML SUBCUT SCH ×4 (00:21→17:39)
[2018-05-25 07:48] LABS: Calcium 8.2 MG/DL (8.5-10.1)
[2018-05-25 07:49] LABS: Osmolality,Calculated 269.2 MOS/KG (273-304); Potassium 4.2 MMOL/L (3.5-5.1); Prealbumin 4.3 MG/DL (20-40)
[2018-05-25] MEDS: amLODIPine 10 MG TABLET PO SCH (08:59)
[2018-05-25] MEDS: FOLIC ACID 1 MG TABLET PO SCH ×2 (08:59→23:35)
[2018-05-25] MEDS: PANTOPRAZOLE 40 MG VIAL IV SCH ×2 (08:59→23:35)
[2018-05-25] MEDS: ERTAPENEM 1,000 MG in SODIUM CHLORIDE 0.9% 100 ML IV SCH (09:07)
[2018-05-25] MEDS: FAT EMULSION 20% 250 ML IV SCH (13:50)
[2018-05-25] MEDS: TRACE ELEMENTS (5) 1 ML, MULTIVITAMIN INJ 10 ML in AMINO ACIDS/DEXT/LYTES 5-15% 2,000 ML IV SCH (17:15)
[2018-05-25] MEDS: ENOXAPARIN 40 MG/0.4 ML SYRINGE SUBCUT SCH (18:55)
[2018-05-26] MEDS: INSULIN REGULAR 100 UNIT/ML SUBCUT SCH ×2 (02:18→08:26)
[2018-05-26] MEDS ORDERED: AMPICILLIN INJ 1,000 MG in SODIUM CHLORIDE 0.9% 100 ML IV SCH (07:00)
[2018-05-26] MEDS: amLODIPine 10 MG TABLET PO SCH (09:38)
[2018-05-26] MEDS: FOLIC ACID 1 MG TABLET PO SCH (09:38)
[2018-05-26] MEDS: PANTOPRAZOLE 40 MG VIAL IV SCH (09:46)
[2018-05-26 13:35] VITALS: BP 112/56
== END 2018-05-26 14:57 | DRG 329 ==
LOC: SUATTDRO 19:37 → N.5E 19:37
PROVIDERS: ADMIT Internal Medicine; ATTEND Surgery
PROC: COLONBX (2018-05-09 08:05)